=== PATIENT | female | born 1935 | race Caucasian/White ===

== ENCOUNTER 2021-10-08 12:44 | Observation (INO) | payer MEDICARE, OTHER ==
[~2021-10-08] VITALS: Ht 160 cm; Wt 94.6 kg
[~2021-10-08 12:44] MED LIST: ASPIRIN 32325 MG/TAB PO; NORCO 325 MG-51 TAB PO; TOPROL XL 50MG50 MG PO
[2021-10-08 14:11] LABS: BASO % 0.5 % (0.0-2.0); EOS # 0.1 K/mm3 (0.0-0.7); EOS % 1.1 % (0.0-4.0); GRAN # 3.6 K/mm3 (1.4-6.5); GRAN % 66.1 % (42.2-75.2); HEMATOCRIT 48.6 % (37.0-47.0); HEMOGLOBIN 15.9 g/dl (12.5-16.0); LYMPH # 1.4 K/mm3 (1.2-3.4); LYMPH % 25.9 % (20.0-51.0); MEAN CELL VOLUME 94 fl (80.0-100.0); MEAN CORPUSCULAR HEMOGLOBIN 31 pg (27-31); MEAN CORPUSCULAR HGB CONC 33 g/dl (33.0-37.0); MEAN PLATELET VOLUME 10.8 fl (7.4-10.4); MONO # 0.3 K/mm3 (0.1-0.6); MONO % 6.2 % (1.7-9.3); PLATELET COUNT 154 K/mm3 (130-400); RED BLOOD COUNT 5.15 M/mm3 (4.10-5.30); REDCELL DISTRIBUTION WIDTH-CV 14.4 % (11.5-14.5)
[2021-10-08 14:28] LABS: INR 1.1 (0.8-3.0); PROTHROMBIN TIME 12.6 SECONDS (9.7-12.8)
[2021-10-08 14:35] LABS: ALBUMIN 3.5 gm/dL (3.4-4.8); BILIRUBIN,TOTAL 2.2 mg/dL (0.2-1.2); C-REACTIVE PROTEIN 0.67 mg/dL (0.00-0.50); CALCIUM 9.1 mg/dL (8.4-10.2); CREATININE, serum 0.82 mg/dL (0.57-1.11); POTASSIUM 3.9 mmol/L (3.5-4.5); TOTAL PROTEIN 7.4 gm/dL (6.2-8.1)
[2021-10-08 17:00] VITALS: BP 164/72; PULSE 96; TEMP 97.7
[2021-10-08] MEDS ORDERED: TOPROL XL 25MG25 MG PO (17:22)
[2021-10-08] MEDS ORDERED: ELIQUIS 5MG PO (17:24)
--- NOTE | 2021-10-08 18:26 | NUR ---
Pt recently arrived to the floor from ED. She is alert and oriented with no pain complaints at this time. INT to her right hand. Oriented her to her room and educated her on orders and how to order meals. Pt stated that she was told not to eat or drink anything at this time. Informed her that she does have orders that she can eat, pt refused food at this time. Gave her fresh ice water.
[2021-10-08 20:28] VITALS: BP 148/60; PULSE 70; TEMP 98.2
[2021-10-08 21:19] LABS: HEMATOCRIT 46.2 % (37.0-47.0); HEMOGLOBIN 14.9 g/dl (12.5-16.0)
[2021-10-09 00:03] VITALS: BP 117/54; PULSE 70; TEMP 97.6
[2021-10-09 04:30] VITALS: BP 123/58; PULSE 61; TEMP 97.9
[2021-10-09 06:56] LABS: BASO % 0.6 % (0.0-2.0); EOS # 0.1 K/mm3 (0.0-0.7); EOS % 2.8 % (0.0-4.0); GRAN # 2.4 K/mm3 (1.4-6.5); GRAN % 52.2 % (42.2-75.2); HEMATOCRIT 42.7 % (37.0-47.0); HEMOGLOBIN 13.9 g/dl (12.5-16.0); LYMPH # 1.7 K/mm3 (1.2-3.4); LYMPH % 35.4 % (20.0-51.0); MEAN CELL VOLUME 96 fl (80.0-100.0); MEAN CORPUSCULAR HEMOGLOBIN 31 pg (27-31); MEAN CORPUSCULAR HGB CONC 33 g/dl (33.0-37.0); MEAN PLATELET VOLUME 11.5 fl (7.4-10.4); MONO # 0.4 K/mm3 (0.1-0.6); MONO % 8.8 % (1.7-9.3); PLATELET COUNT 124 K/mm3 (130-400); RED BLOOD COUNT 4.43 M/mm3 (4.10-5.30); REDCELL DISTRIBUTION WIDTH-CV 14.3 % (11.5-14.5)
--- NOTE | 2021-10-09 07:07 | NUR ---
Shift report received from entertainment & media correspondent RNRoberto. Pt. resting in right side lying position in bed. Call light is within her reach
[2021-10-09 07:13] LABS: ALBUMIN 2.8 gm/dL (3.4-4.8); CALCIUM 8.5 mg/dL (8.4-10.2); CREATININE, serum 0.76 mg/dL (0.57-1.11); MAGNESIUM 2.1 mg/dL (1.6-2.6); PHOSPHOROUS 2.6 mg/dL (2.3-4.7); POTASSIUM 3.7 mmol/L (3.5-4.5)
[2021-10-09 08:13] VITALS: BP 129/76; PULSE 73; TEMP 98.1
--- NOTE | 2021-10-09 09:26 | NUR ---
Pt. resting in bed. She has completed breakfast. No c/o nausea, abd. pain. She denies general pain/discomfort. Right hand IV w/out redness/swelling/tenderness. Pt. is wondering when she can go home. She denies any further bloody stools so far this shift. She denies further needs at this time. Call light is within her reach
[2021-10-09] MEDS ORDERED: FLAGYL500 MG PO (10:55)
[2021-10-09] MEDS ORDERED: PROTONIX 40MG T40 MG PO (10:56)
--- NOTE | 2021-10-09 12:02 | NUR ---
Initial visit; Patient thanked Nitroglycerin Nitrator Operator Batch for looking in on her and letting her know of the availability of [facility] at [facility]. Iraida thanked Nitroglycerin Nitrator Operator Batch for offering God's blessings and wishing her well.
--- NOTE | 2021-10-09 12:12 | NUR ---
Pt. Discharge Summary, Health Summary, and Home Meds reviewed with patient. She denied valuables in safe. Reviewed f/u appts with pt. Pt. escorted via wheelchair to vehicle and seatbelted for ride home
== END 2021-10-09 11:40 | disposition home or self-care (01) ==
LOC: COL.ER 12:44 → SURG 15:46
PROVIDERS: Nurse Practitioner; ADMIT Internal Medicine
DX: K92.2 Gastrointestinal hemorrhage, unspecified (principal); K52.9 Noninfective gastroenteritis and colitis, unspecified; I48.91 Unspecified atrial fibrillation; Z79.01 Long term (current) use of anticoagulants; Z79.899 Other long term (current) drug therapy; Z79.82 Long term (current) use of aspirin
CPT/HCPCS: C9113; Q9967

== ENCOUNTER 2022-03-08 17:29 | Emergency (ER) | payer MEDICARE, OTHER ==
[~2022-03-08] VITALS: Ht 160 cm; Wt 90.9 kg
[~2022-03-08 17:29] MED LIST changes: +ELIQUIS 5MG PO; +FLAGYL500 MG PO; +PROTONIX 40MG T40 MG PO; +TOPROL XL 25MG25 MG PO
[2022-03-08 17:59] VITALS: TEMP 98.1
[2022-03-08 20:55] LABS: COLLECTION METHOD CLEAN CATCH
[2022-03-08 20:59] LABS: BASO % 0.4 % (0.0-2.0); EOS # 0.1 K/mm3 (0.0-0.7); GRAN # 4.9 K/mm3 (1.4-6.5); GRAN % 71.4 % (42.2-75.2); HEMATOCRIT 47.6 % (37.0-47.0); HEMOGLOBIN 15.6 g/dl (12.5-16.0); LYMPH # 1.4 K/mm3 (1.2-3.4); LYMPH % 20.3 % (20.0-51.0); MEAN CELL VOLUME 94 fl (80.0-100.0); MEAN CORPUSCULAR HEMOGLOBIN 31 pg (27-31); MEAN CORPUSCULAR HGB CONC 33 g/dl (33.0-37.0); MEAN PLATELET VOLUME 10.9 fl (7.4-10.4); MONO # 0.5 K/mm3 (0.1-0.6); MONO % 6.8 % (1.7-9.3); PLATELET COUNT 175 K/mm3 (130-400); RED BLOOD COUNT 5.07 M/mm3 (4.10-5.30); REDCELL DISTRIBUTION WIDTH-CV 14.6 % (11.5-14.5)
[2022-03-08 21:03] LABS: PH 5.5 (5.0-8.5); URINE APPEARANCE Clear (CLEAR/HAZY); URINE BLOOD TRACE-LYSED (NEGATIVE); URINE COLOR Yellow (YELLOW); URINE GLUCOSE Negative (NEGATIVE); URINE KETONE TRACE (NEGATIVE); URINE NITRATE Negative (NEGATIVE); URINE PROTEIN(semi-quant) Negative (NEGATIVE); URINE UROBILINOGEN 0.2 E.U/dL (0.2-1.0)
[2022-03-08 21:05] LABS: MUCOUS Present (NOT PRESENT); URINE BACTERIA None Seen /hpf (NONE SEEN)
[2022-03-08 21:18] LABS: ALBUMIN 3.4 gm/dL (3.4-4.8); BILIRUBIN,TOTAL 2.4 mg/dL (0.2-1.2); CALCIUM 9.2 mg/dL (8.4-10.2); CREATININE, serum 0.9 mg/dL (0.57-1.11); POTASSIUM 3.9 mmol/L (3.5-4.5); TOTAL PROTEIN 7.3 gm/dL (6.2-8.1)
[2022-03-08] MEDS ORDERED: CIPRO 500MG TA500 MG PO (23:54)
[2022-03-09] VITALS: BP 132/99; PULSE 72
== END 2022-03-09 | disposition home or self-care (01) ==
LOC: COL.ER 17:29
PROVIDERS: Nurse Practitioner Primary Care
DX: A04.4 Other intestinal Escherichia coli infections (principal); B96.21 Shiga toxin-producing Escherichia coli [E. coli] [STEC] O157 as the cause of diseases classified elsewhere
CPT/HCPCS: J7030; Q9967